=== PATIENT | male | born 1985 | race African-American/Black ===

== ENCOUNTER → 2024-06-25 | Outpatient (CLI) | payer OTHER ==
[~2024-06-25] MED LIST: PROHANCE 279.3MG/ML 15ML VIAL ONE; PROHANCE 279.3MG/ML 5ML VIAL ONE
== END ==
LOC: M PLAIMG 10:05
PROVIDERS: ATTEND Physician Assistant
DX: M67.442 Ganglion, left hand (principal)

== ENCOUNTER 2024-07-02 07:56 | Observation (INO) | payer OTHER ==
[2024-07-02] VITALS (10 sets, daily range): BP systolic 126–158; BP diastolic 60–82; TEMP 91.1–98.9; O2SAT 96–98
[~2024-07-02] VITALS: Ht 180.3 cm; Wt 106.6 kg
[2024-07-02] MEDS ORDERED: LR 1,000 ML IV SCH (08:30)
[2024-07-02] MEDS: IPRATROPIUM 0.5MG/ALBUTEROL 2.5MG INH SOL UD 3ML NEB ONE (09:43)
[2024-07-02] MEDS ORDERED: LIDOCAINE 2% 100MG/5ML SDV (FOR ANES.) As Ordered ONE (10:33)
[2024-07-02] MEDS ORDERED: ONDANSETRON 4MG 2ML VIAL As Ordered ONE (10:33)
[2024-07-02] MEDS ORDERED: propofoL 200 MG/20 ML VIAL As Ordered ONE (10:33)
[2024-07-02] MEDS ORDERED: ACETAMINOPHEN 1000MG/100ML IV BAG As Ordered ONE (10:33)
[2024-07-02] MEDS ORDERED: MIDAZOLAM INJ 2MG/2ML VIAL As Ordered ONE (10:34)
[2024-07-02] MEDS ORDERED: fentaNYL 100 MCG/2 ML INJECTION As Ordered ONE (10:34)
[2024-07-02] MEDS: ceFAZolin SODIUM 2 GM in DEXTROSE 5% (D5W) ADV/MINI-BAG 50 ML IV ONE (10:50)
[2024-07-02] MEDS ORDERED: ePHEDrine SULFATE 25 MG/5 ML(5MG/ML) SYRINGE As Ordered ONE (11:31)
[2024-07-02] MEDS ORDERED: PHENYLephrine 500MCG 5ML (100MCG/ML) SYRINGE As Ordered ONE (11:31)
[2024-07-02] MEDS ORDERED: KETOROLAC 30 MG/ML 1ML VIAL As Ordered ONE (11:33)
[2024-07-02] MEDS: BACITRACIN OINTMENT 30GM TUBE As Ordered ONE (11:52)
[2024-07-02] MEDS ORDERED: ONDANSETRON 4MG 2ML VIAL IV PRN (12:00)
[2024-07-02] MEDS ORDERED: fentaNYL 100 MCG/2 ML INJECTION IV PRN (12:00)
[2024-07-02] MEDS ORDERED: PERCOCET PO (12:19)
[2024-07-02] MEDS: oxyCODONE 5MG TAB PO PRN (12:48)
[2024-07-02] MEDS: HYDROMORPHONE HCL 0.5 MG/ 0.5 ML SYRINGE IV PRN (12:54)
[2024-07-02 14:17] LABS: CK-MB VALUE MASS 3.4 NG/ML (<3.6)
[2024-07-02 14:32] LABS: MB/CK RELATIVE INDEX 0.11 (< OR =4)
[2024-07-02 17:28] LABS: BASO % 0.2 % (0.0-1.0); EOS % 0.4 % (0.0-3.0); HEMATOCRIT 44.2 % (42.0-52.0); LYMPH # 0.8 10^3/uL (1.5-5.0); LYMPH % 15.7 % (24.0-44.0); MEAN CORPUSCULAR HEMOGLOBIN 31.6 pg (27.0-33.0); MEAN CORPUSCULAR HGB CONC 33.9 g/dl (32.0-36.5); MEAN CORPUSCULAR VOLUME 93.1 fl (80.0-96.0); MONO # 0.2 10^3/uL (0.0-0.8); MONO % 3.2 % (2.0-8.0); NEUTROPHILS # 4.3 10^3/uL (1.5-8.5); NEUTROPHILS % 80.3 % (36.0-66.0); PLATELET COUNT, AUTOMATED 147 10^3/uL (150-450); RED BLOOD COUNT 4.75 10^6/uL (4.30-6.10); WHITE BLOOD COUNT 5.4 10^3/uL (4.0-10.0)
[2024-07-02 17:35] LABS: CK-MB VALUE MASS 2.9 NG/ML (<3.6)
[2024-07-02 17:37] LABS: ALBUMIN 3.7 G/DL (3.2-5.2); ALKALINE PHOSPHATASE 48 U/L (40-129); ALT/SGPT 44 U/L (7.0-40); AST/SGOT 101 U/L (<34); BILIRUBIN,TOTAL 0.5 MG/DL (0.3-1.2); BLOOD UREA NITROGEN 13 MG/DL (9-23); CALCIUM LEVEL 9.2 MG/DL (8.5-10.1); CARBON DIOXIDE LEVEL 25 MMOL/L (20-31); CHLORIDE LEVEL 108 MMOL/L (98-107); CREATININE FOR GFR 0.97 MG/DL (0.70-1.30); GLOMERULAR FILTRATION RATE > 90.0 (>60); GLUCOSE, FASTING 110 MG/DL (60-100); POTASSIUM SERUM 5.1 MMOL/L (3.5-5.1); SODIUM LEVEL 140 MMOL/L (136-145); TOTAL PROTEIN 6.9 G/DL (5.7-8.2)
[2024-07-02 17:54] LABS: MB/CK RELATIVE INDEX 0.1 (< OR =4)
[2024-07-02] MEDS ORDERED: NITROGLYCERIN 0.4MG SUBL TABLET SL PRN (18:55)
[2024-07-02] MEDS ORDERED: MORPHINE 2 MG/ML 1ML VIAL IV PRN (18:55)
[2024-07-02] MEDS ORDERED: PERCOCET 5MG/325MG TAB PO PRN (18:55)
[2024-07-02 19:41] LABS: MONO SCRN NEGATIVE (NEGATIVE)
[2024-07-02 19:44] LABS: MAGNESIUM LEVEL 1.8 MG/DL (1.8-2.4)
[2024-07-02] MEDS: LISINOPRIL *2.5 MG* TAB PO SCH (20:09)
[2024-07-02] MEDS: ASPIRIN 81MG CHEW TABLET PO ONE (20:09)
[2024-07-02] MEDS: LR 1,000 ML IV SCH ×2 (20:16→20:42)
[2024-07-02 21:44] LABS: CK-MB VALUE MASS 2.9 NG/ML (<3.6)
[2024-07-02 21:57] LABS: MB/CK RELATIVE INDEX 0.11 (< OR =4)
[2024-07-02] MEDS: ACETAMINOPHEN 325 MG TAB PO PRN (22:38)
[2024-07-03 04:08] VITALS: BP 136/60; TEMP 99.2; O2SAT 97
[2024-07-03 04:57] LABS: HEMATOCRIT 39.8 % (42.0-52.0); HEMOGLOBIN 13.3 g/dl (13.5-17.5); MEAN CORPUSCULAR HEMOGLOBIN 31.1 pg (27.0-33.0); MEAN CORPUSCULAR HGB CONC 33.4 g/dl (32.0-36.5); MEAN CORPUSCULAR VOLUME 93.2 fl (80.0-96.0); PLATELET COUNT, AUTOMATED 126 10^3/uL (150-450); RED BLOOD COUNT 4.27 10^6/uL (4.30-6.10); WHITE BLOOD COUNT 8.3 10^3/uL (4.0-10.0)
[2024-07-03 05:15] LABS: BLOOD UREA NITROGEN 19 MG/DL (9-23); CALCIUM LEVEL 8.6 MG/DL (8.5-10.1); CARBON DIOXIDE LEVEL 26 MMOL/L (20-31); CHLORIDE LEVEL 111 MMOL/L (98-107); CHOLESTEROL LEVEL 157 MG/DL (<200); CHOLESTEROL RISK RATIO 2.84 (<5); CREATININE FOR GFR 1.14 MG/DL (0.70-1.30); GLUCOSE, FASTING 118 MG/DL (60-100); HDL CHOLESTEROL 55.2 MG/DL (>40); MAGNESIUM LEVEL 1.9 MG/DL (1.8-2.4); NON-HDL-C 101.8 MG/DL; POTASSIUM SERUM 4.2 MMOL/L (3.5-5.1); SODIUM LEVEL 142 MMOL/L (136-145); TRIGLYCERIDES LEVEL 94 MG/DL (<150)
[2024-07-03 05:20] LABS: CK-MB VALUE MASS 1.9 NG/ML (<3.6)
[2024-07-03 05:31] LABS: HEPATITIS B SURFACE ANTIGEN NEGATIVE (NEGATIVE)
[2024-07-03 05:51] LABS: HEPATITIS B CORE ANTIBODY IGM NEGATIVE (NEGATIVE); HEPATITIS C VIRUS ABY INDEX 0.04 INDEX (<0.8)
[2024-07-03 05:52] LABS: CPK CREATINE PHOSPHOKINASE 1639 U/L (46-171); MB/CK RELATIVE INDEX 0.11 (< OR =4)
[2024-07-03] MEDS: PERCOCET 5MG/325MG TAB PO PRN (06:35)
[2024-07-03 07:31] VITALS: BP 137/74; TEMP 98.3; O2SAT 97
[2024-07-03] MEDS: ASPIRIN 81MG CHEW TABLET PO SCH (09:48)
[2024-07-03 11:25] VITALS: BP 144/76; TEMP 97.3; O2SAT 97
[2024-07-03 11:33] LABS: MB/CK RELATIVE INDEX 0.13 (< OR =4)
[2024-07-03 16:10] VITALS: BP 136/73; TEMP 98.1; O2SAT 98
[2024-07-03 16:52] LABS: CK-MB VALUE MASS 1.7 NG/ML (<3.6)
[2024-07-03 17:12] LABS: MB/CK RELATIVE INDEX 0.12 (< OR =4)
[2024-07-03 20:12] VITALS: BP 122/57; TEMP 97.7; O2SAT 99
[2024-07-03 20:23] VITALS: BP 122/57
[2024-07-03 22:40] LABS: CK-MB VALUE MASS 1.9 NG/ML (<3.6)
[2024-07-03 22:54] LABS: MB/CK RELATIVE INDEX 0.13 (< OR =4)
[2024-07-04 03:51] VITALS: BP 132/80; TEMP 98.2; O2SAT 98
[2024-07-04 04:49] LABS: HEMOGLOBIN 13.1 g/dl (13.5-17.5); MEAN CORPUSCULAR HEMOGLOBIN 31.4 pg (27.0-33.0); MEAN CORPUSCULAR HGB CONC 33.6 g/dl (32.0-36.5); MEAN CORPUSCULAR VOLUME 93.5 fl (80.0-96.0); PLATELET COUNT, AUTOMATED 120 10^3/uL (150-450); RED BLOOD COUNT 4.17 10^6/uL (4.30-6.10); WHITE BLOOD COUNT 5.2 10^3/uL (4.0-10.0)
[2024-07-04 05:06] LABS: CK-MB VALUE MASS 1.6 NG/ML (<3.6)
[2024-07-04 05:09] LABS: BLOOD UREA NITROGEN 15 MG/DL (9-23); CALCIUM LEVEL 8.8 MG/DL (8.5-10.1); CARBON DIOXIDE LEVEL 29 MMOL/L (20-31); CHLORIDE LEVEL 109 MMOL/L (98-107); CREATININE FOR GFR 1.05 MG/DL (0.70-1.30); GLOMERULAR FILTRATION RATE > 90.0 (>60); GLUCOSE, FASTING 93 MG/DL (60-100); POTASSIUM SERUM 4.3 MMOL/L (3.5-5.1); SODIUM LEVEL 144 MMOL/L (136-145)
[2024-07-04 05:13] LABS: MB/CK RELATIVE INDEX 0.14 (< OR =4)
[2024-07-04 08:10] VITALS: BP 161/95; TEMP 97.8; O2SAT 99
[2024-07-04] MEDS ORDERED: LISI2.5T9 PO (09:09)
[2024-07-04] MEDS ORDERED: TALK1KIT MC (09:10)
[2024-07-04 09:32] LABS: CPK CREATINE PHOSPHOKINASE 1079 U/L (46-171)
[2024-07-04 09:35] LABS: CK-MB VALUE MASS 1.5 NG/ML (<3.6); MB/CK RELATIVE INDEX 0.13 (< OR =4)
[2024-07-04 09:51] VITALS: BP 118/102
[2024-07-04 11:28] LABS: CK-MB VALUE MASS 1.7 NG/ML (<3.6); MB/CK RELATIVE INDEX 0.15 (< OR =4)
[2024-07-04 15:12] LABS: ANA SCREEN, IFA NEGATIVE (NEGATIVE)
== END 2024-07-04 11:17 | disposition home or self-care (01) ==
LOC: M SDC 07:56 → M RR INP 07:57 → M PCU 17:12
PROVIDERS: ADMIT General Practice; ATTEND General Practice
DX: L72.0 Epidermal cyst (principal); L72.11 Pilar cyst; I42.2 Other hypertrophic cardiomyopathy; R94.31 Abnormal electrocardiogram [ECG] [EKG]; T79.6XXA Traumatic ischemia of muscle, initial encounter; M96.89 Other intraoperative and postprocedural complications and disorders of the musculoskeletal system; R20.8 Other disturbances of skin sensation; I10 Essential (primary) hypertension; F17.210 Nicotine dependence, cigarettes, uncomplicated; E66.9 Obesity, unspecified; Z68.31 Body mass index [BMI] 31.0-31.9, adult; R00.2 Palpitations; Z83.3 Family history of diabetes mellitus; Z82.49 Family history of ischemic heart disease and other diseases of the circulatory system
CPT/HCPCS: 26160; 36415; 80048; 80053; 80061; 80074; 82373; 82550; 82553; 83735; 83874; 84484; 85025; 85027; 86038; 86308; 87070; 87075; 87205; 88305; 93005; 93306; J0131; J0665; J0690; J1100; J1171; J1885; J2250; J2371; J2405; J3010

== ENCOUNTER 2024-07-22 11:36 | Emergency (ER) | payer OTHER ==
[~2024-07-22] VITALS: Ht 180.3 cm; Wt 100.7 kg
[~2024-07-22 11:36] MED LIST changes: +LISI2.5T9 PO; +PERCOCET PO; -PROHANCE 279.3MG/ML 15ML VIAL ONE; -PROHANCE 279.3MG/ML 5ML VIAL ONE; +TALK1KIT MC
[2024-07-22 11:44] VITALS: TEMP 96.4
[2024-07-22] MEDS ORDERED: CARV3.12 PO (11:49)
[2024-07-22 12:23] LABS: BASO % 0.5 % (0.0-1.0); EOS # 0.3 10^3/uL (0.0-0.5); EOS % 4.5 % (0.0-3.0); HEMATOCRIT 48.1 % (42.0-52.0); HEMOGLOBIN 16.4 g/dl (13.5-17.5); LYMPH # 1.9 10^3/uL (1.5-5.0); LYMPH % 32.8 % (24.0-44.0); MEAN CORPUSCULAR HEMOGLOBIN 31.4 pg (27.0-33.0); MEAN CORPUSCULAR HGB CONC 34.1 g/dl (32.0-36.5); MONO # 0.5 10^3/uL (0.0-0.8); MONO % 8.5 % (2.0-8.0); NEUTROPHILS # 3.1 10^3/uL (1.5-8.5); NEUTROPHILS % 53.4 % (36.0-66.0); PLATELET COUNT, AUTOMATED 194 10^3/uL (150-450); RED BLOOD COUNT 5.23 10^6/uL (4.30-6.10); WHITE BLOOD COUNT 5.8 10^3/uL (4.0-10.0)
[2024-07-22] MEDS: ASPIRIN 81MG CHEW TABLET PO ONE (12:24)
[2024-07-22 12:25] VITALS: BP 143/83
[2024-07-22] MEDS: NITROGLYCERIN 0.4MG SUBL TABLET SL PRN (12:25)
[2024-07-22 13:01] LABS: ALBUMIN 4.2 G/DL (3.2-5.2); ALKALINE PHOSPHATASE 61 U/L (40-129); ALT/SGPT 54 U/L (7.0-40); AST/SGOT 36 U/L (<34); BILIRUBIN,DIRECT < 0.1 MG/DL (<0.4); BILIRUBIN,TOTAL 0.4 MG/DL (0.3-1.2); BLOOD UREA NITROGEN 15 MG/DL (9-23); CARBON DIOXIDE LEVEL 31 MMOL/L (20-31); CHLORIDE LEVEL 103 MMOL/L (98-107); CPK CREATINE PHOSPHOKINASE 208 U/L (46-171); CREATININE FOR GFR 1.12 MG/DL (0.70-1.30); FREE T4 1.63 NG/DL (0.89-1.76); GLOMERULAR FILTRATION RATE 86.8 (>60); GLUCOSE, FASTING 97 MG/DL (60-100); MB/CK RELATIVE INDEX 0.48 (< OR =4); POTASSIUM SERUM 4.2 MMOL/L (3.5-5.1); SODIUM LEVEL 141 MMOL/L (136-145); THYROID STIMULATING HORMONE 0.609 uIU/ML (0.55-4.78); TOTAL PROTEIN 7.3 G/DL (5.7-8.2)
[2024-07-22] MEDS ORDERED: ISOVUE-370 76% 100ML VIAL As Ordered ONE (13:46)
[2024-07-22 13:57] LABS: CK-MB VALUE MASS 1.3 NG/ML (<3.6)
[2024-07-22 13:59] LABS: MB/CK RELATIVE INDEX 0.67 (< OR =4)
[2024-07-22] MEDS ORDERED: LISI2.5T9 PO (14:17)
[2024-07-22] MEDS ORDERED: HOME MED LIST COMPLETE! XX SCH (14:20)
[2024-07-22 15:39] LABS: CK-MB VALUE MASS 1.2 NG/ML (<3.6)
[2024-07-22 15:42] LABS: MB/CK RELATIVE INDEX 0.64 (< OR =4)
[2024-07-22 16:45] VITALS: BP 132/79; O2SAT 97
== END 2024-07-22 17:12 | disposition home or self-care (01) ==
LOC: M ED 11:36
DX: R07.9 Chest pain, unspecified (principal); I10 Essential (primary) hypertension; F17.210 Nicotine dependence, cigarettes, uncomplicated; Z88.8 Allergy status to other drugs, medicaments and biological substances
CPT/HCPCS: 36415; 71045; 71275; 80048; 80076; 82550; 82553; 84439; 84443; 84484; 85025; 87486; 87581; 87633; 87798; 93005; 93041; 94760; 99285; Q9967

== ENCOUNTER 2024-10-20 09:42 | Emergency (ER) | payer OTHER ==
[~2024-10-20 09:42] MED LIST changes: +CARV3.12 PO
[2024-10-20 10:26] LABS: BASO # 0.0 10^3/uL (0.0-0.2); BASO % 0.7 % (0.0-1.0); EOS # 0.2 10^3/uL (0.0-0.5); EOS % 3.6 % (0.0-3.0); LYMPH # 1.5 10^3/uL (1.5-5.0); LYMPH % 26.5 % (24.0-44.0); MONO # 0.4 10^3/uL (0.0-0.8); MONO % 7.7 % (2.0-8.0); NEUTROPHILS # 3.4 10^3/uL (1.5-8.5); NEUTROPHILS % 61.0 % (36.0-66.0); PLATELET COUNT, AUTOMATED 203 10^3/uL (150-450)
[2024-10-20] MEDS ORDERED: SERT25TA21 (10:32)
[2024-10-20] MEDS ORDERED: ECOT81TA5 PO (10:32)
[2024-10-20] MEDS ORDERED: RAME8TAB2 (10:32)
[2024-10-20] MEDS ORDERED: CARV6.25 (10:32)
[2024-10-20] MEDS ORDERED: LISI10TA22 (10:32)
[2024-10-20 10:42] LABS: INR 0.94
[2024-10-20 10:54] LABS: ALT/SGPT 98.0 U/L (7.0-40); AST/SGOT 62.0 U/L (<34); CALCIUM LEVEL 9.4 MG/DL (8.5-10.1); CARBON DIOXIDE LEVEL 27.0 MMOL/L (20-31); CHLORIDE LEVEL 104.0 MMOL/L (98-107); CK-MB VALUE MASS 3.5 NG/ML (<3.6); CPK CREATINE PHOSPHOKINASE 239.0 U/L (46-171); CREATININE FOR GFR 1.25 MG/DL (0.70-1.30); GLOMERULAR FILTRATION RATE 76.1 (>60); MB/CK RELATIVE INDEX 1.46 (< OR =4); POTASSIUM SERUM 4.2 MMOL/L (3.5-5.1); SODIUM LEVEL 141.0 MMOL/L (136-145)
[2024-10-20 11:41] VITALS: BP 123/79; TEMP 98; O2SAT 98
== END 2024-10-20 12:01 | disposition home or self-care (01) ==
LOC: M ED 09:42
DX: R07.89 Other chest pain (principal); R53.83 Other fatigue; R94.31 Abnormal electrocardiogram [ECG] [EKG]; Z79.1 Long term (current) use of non-steroidal anti-inflammatories (NSAID); Z79.899 Other long term (current) drug therapy